=== PATIENT | male | born 1970 | race Caucasian/White ===

== ENCOUNTER → 2016-04-30 | Outpatient (CLI) | payer OTHER ==
--- NOTE | 2016-05-02 07:19 | SLEEPCENT ---
DATE OF PROCEDURE: 04/30/2016 ORDERED BY: Marilin Delgado Nocturnal polysomnography was performed for the titration of pressure therapy in this patient with obstructive sleep apnea syndrome and apnea-hypopnea index of 9.5. For testing, the patient was fit with a [employer]Med Quattro full face mask of medium size and 5 cm of water pressure were applied to the circuit and the lights were extinguished. 7 hours and 4 minutes of data were reviewed. There were 348 minutes of sleep identified. Sleep latency was mildly prolonged at 24 minutes. Rapid eye movement (REM) latency more so prolonged at 226 minutes. Sleep architecture showed fragmentation. Overall sleep efficiency was 82%. Electrocardiogram (EKG) showed a sinus rhythm with an average heart rate of 58 beats per minute. Electroencephalogram (EEG) showed normal waveforms for awake and sleep. Respiratory events were found best palliated with CPAP at a pressure of +7, with which the patient slept through REM in the supine posture without respiratory event or oxygen desaturation. CPAP tolerance was good. IMPRESSION: Obstructive sleep apnea syndrome (G47.33). RECOMMENDATION: Nightly use of pressure at 7 cm of water.
== END | disposition home or self-care (01) ==
LOC: M SLEEP 19:48
PROVIDERS: ATTEND Nurse Practitioner Adult Health
DX: G47.33 Obstructive sleep apnea (adult) (pediatric) (principal)